=== PATIENT | male | born 1950 | race African-American/Black ===

== ENCOUNTER 2017-07-19 13:20 | Emergency (ER) | payer MEDICARE ==
[~2017-07-19] VITALS: Ht 172.7 cm; Wt 69.5 kg
[2017-07-19] MEDS ORDERED: ASPI-496 PO (13:46)
[2017-07-19] MEDS ORDERED: ASPIRIN 81 MG TABLET CHEW ONE (14:16)
[2017-07-19] MEDS ORDERED: ASPIRIN 81 MG TABLET CHEW PO ONE (14:30)
[2017-07-19 14:54] LABS: ALBUMIN 4.5 g/dL (3.4-5.0); ANION GAP 8 mmol/L (5-15); CALCIUM 10.1 mg/dL (8.5-10.1); CHLORIDE 107 mmol/L (98-107); CREATININE 1.29 mg/dL (0.7-1.3)
[2017-07-19 14:59] LABS: TROPONIN I < 0.015 ng/mL (0.000-0.045)
[2017-07-19] MEDS ORDERED: METOPROLOL TARTRATE 50 MG TABLET ONE (15:02)
[2017-07-19 15:05] LABS: MEAN CORPUSCULAR HEMOGLOBIN 26.1 pg (27.5-34.5); MEAN CORPUSCULAR HGB CONC 32.6 g/dL (33.2-36.2); MEAN CORPUSCULAR VOLUME 80.1 fL (81-97); MEAN PLATELET VOLUME 9.1 fL (7.4-10.4); PLATELET COUNT 228 x10^3/uL (130-400); RED BLOOD COUNT 6.08 x10^6/uL (4.38-5.82); RED CELL DISTRIBUTION WIDTH 16.2 % (9.4-14.8)
[2017-07-19 15:28] LABS: BASOPHILS # (AUTO) 0.02 x10^3/uL (0-0.1); BASOPHILS % (AUTO) 0 % (0-1); EOSINOPHILS # (AUTO) 0.01 x10^3/uL (0-0.4); EOSINOPHILS % (AUTO) 0 % (1-7); LYMPHOCYTES # (AUTO) 1.66 x10^3/uL (1-3.4); LYMPHOCYTES % (AUTO) 31 % (22-44); MD MORPH REVIEW ONLY; MONOCYTES # (AUTO) 0.39 x10^3/uL (0.2-0.8); MONOCYTES % (AUTO) 7 % (2-9); NEUTROPHILS # (AUTO) 3.32 x10^3/uL (1.8-6.8); NEUTROPHILS % (AUTO) 61 % (42-75)
[2017-07-19 15:30] LABS: <PLATELET ESTIMATE> ADEQUATE; <PLT MORPHOLOGY> NORMAL PLT MORPH; ANISOCYTOSIS 1+; HYPOCHROMIA 1+; MICROCYTOSIS 1+
[2017-07-19] MEDS ORDERED: METOPROLOL TARTRATE 50 MG TABLET PO ONE (15:30)
[2017-07-19 16:01] VITALS: BP 185/123
== END 2017-07-19 17:09 | disposition home or self-care (01) ==
LOC: ED 15:33
DX: I10 Essential (primary) hypertension (principal); I25.10 Atherosclerotic heart disease of native coronary artery without angina pectoris; I25.2 Old myocardial infarction; Z87.891 Personal history of nicotine dependence
CPT/HCPCS: 36415; 71045; 80048; 82040; 83605; 84484; 85025; 93005; 99285

== ENCOUNTER 2020-08-09 12:15 | Emergency (ER) | payer MEDICARE, OTHER ==
[~2020-08-09] VITALS: Ht 162.6 cm; Wt 57.9 kg
[~2020-08-09 12:15] MED LIST: ASPI-496 PO
[2020-08-09 12:21] VITALS: BP 181/106
[2020-08-09] MEDS ORDERED: SODIUM CHLORIDE FLUSH 10ML SYR IVF ONE (12:30)
--- NOTE | 2020-08-09 12:34 | NUR ---
CODE CARDIAC WAS INITIATED FROM EMS IN FEI 1203. CODE CARDIAC CANCELLED [address] MCKEON AND DR DIAZ.
[2020-08-09 12:48] LABS: BASOPHILS % (AUTO) 2 % (0-1); EOSINOPHILS % (AUTO) 0 % (1-7); LYMPHOCYTES % (AUTO) 19 % (22-44); MEAN CORPUSCULAR HEMOGLOBIN 26.3 pg (27.5-34.5); MEAN CORPUSCULAR HGB CONC 32.9 g/dL (33.2-36.2); MEAN PLATELET VOLUME 8.3 fL (7.4-10.4); MONOCYTES % (AUTO) 8 % (2-9); NEUTROPHILS % (AUTO) 71 % (42-75); PLATELET COUNT 207 x10^3/uL (130-400); RED BLOOD COUNT 5.81 x10^6/uL (4.38-5.82); RED CELL DISTRIBUTION WIDTH 16.4 % (9.4-14.8)
[2020-08-09 12:49] LABS: MD NO
[2020-08-09 13:00] LABS: ALBUMIN 4.4 g/dL (3.4-5.0); ANION GAP 9 mmol/L (5-15); CALCIUM 9.9 mg/dL (8.5-10.1); CHLORIDE 105 mmol/L (98-107)
--- NOTE | 2020-08-09 13:02 | NUR ---
PT MOVED FROM T4 TO ROOM 35. REPORT RECEIVED FROM FRED BAILON. ASSUMING CARE AT THIS TIME. PT RESTING COMFORTABLY ON GURNEY. NADN. PT DENIES FURTHER NEEDS AT THIS TIME. AWAITING [facility] FOR ASSESSMENT OF PT ACUTE ON CHRONIC NECK PAIN AND DIZZINESS WHEN TURNING HEAD SIDE TO SIDE.
[2020-08-09 13:03] LABS: ALANINE AMINOTRANSFERASE 28 U/L (12-78); ALKALINE PHOSPHATASE 55 U/L (45-117); BILIRUBIN,TOTAL 0.6 mg/dL (0.2-1.0); TOTAL PROTEIN 9.4 g/dL (6.4-8.2); TROPONIN I < 0.015 ng/mL (0.000-0.045)
--- NOTE | 2020-08-09 13:32 | NUR ---
ALL RESULTS ARE BACK AT THIS TIME. CHART UP FOR RECHECK.
== END 2020-08-09 14:22 | disposition home or self-care (01) ==
LOC: ED 13:08
DX: R20.2 Paresthesia of skin (principal); M54.2 Cervicalgia; R53.1 Weakness; I45.10 Unspecified right bundle-branch block; Z87.891 Personal history of nicotine dependence
CPT/HCPCS: 36415; 71045; 80053; 84484; 85025; 93005; 99285